=== PATIENT | male | born 1970 | race Caucasian/White ===

== ENCOUNTER 2024-08-09 14:01 | Emergency (ER) | payer OTHER, SELFPAY ==
[2024-08-09 14:10] VITALS: BP 139/92; PULSE 89; RESP 16; TEMP 36.6; O2SAT 99; BMI 20.7
[2024-08-09 14:15] VITALS: RESP 16; O2SAT 100
[2024-08-09] MEDS: IBUPROFEN 800 MG TABLET PO (14:22)
[2024-08-09 14:25] LABS: Coronavirus 19, PCR Not Detected (NotDetected); Influenza A, PCR Not Detected (NotDetected); Influenza B, PCR Not Detected (NotDetected)
--- NOTE | 2024-08-09 15:09 | PC.NURSE ---
Dr. Wyatt currently in speaking with the patient.
--- NOTE | 2024-08-09 15:11 | XR_ITS ---
PROCEDURE INFORMATION: Exam: XR Chest Exam date and time: 08/09/2024 3:32 PM Age: 53 years old Clinical indication: Cough and shortness of breath; Additional info: SOB cough TECHNIQUE: Imaging protocol: Radiologic exam of the chest. Views: 2 views. COMPARISON: No relevant prior studies available. FINDINGS: Lungs: Flattening of the hemidiaphragms compatible with hyperinflation. Lungs are otherwise clear. Pleural spaces: Unremarkable. No pleural effusion. No pneumothorax. Heart/Mediastinum: Unremarkable. No cardiomegaly. Bones/joints: Unremarkable. IMPRESSION: Hyperinflation suggesting possible emphysematous changes in the proper clinical setting. No acute disease.
[2024-08-09 15:12] VITALS: BP 133/88; PULSE 93; RESP 18; O2SAT 98
--- NOTE | 2024-08-09 15:12 | HMH.EDGENADL ---
Discharge Plan Disposition Patient Disposition: Home, Self-Care Prescriptions Prescriptions: New doxycycline hyclate 100 mg capsule 100 mg PO BID 7 Days Qty: 14 0RF prednisone 50 mg tablet 50 mg PO DAILY 3 Days Qty: 3 0RF Referrals Follow up/Referrals: Melba Gasca MD [Primary Care Provider] - See instructions Activity Restrictions/Add. Instructions Additional Instructions/Restrictions: At this time it was felt you are safe to be discharged home. If new or worsening symptoms please do not hesitate to return the emergency department. Please take your medications as prescribed. Use your inhaler 2 to 3 puffs every 3 hours as needed for wheezing and cough. If your symptoms persist longer than 7 days follow-up with your family doctor to make sure things are headed in the right direction Clinical Impressions Clinical Impression: Acute interstitial pneumonia Print Language Print Language: Greenlandic Discharge ED Provider: Ragini Marquez General Adult HPI General Chief complaint: Upper Respiratory Infection Stated complaint: body aches,congestion,fever Time Seen by Provider: 08/09/24 14:36 Mode of Arrival: Ambulatory Source of Information: Patient Limitations: No Limitations Description of Symptoms (Recalled from ER Triage Doc. by RN): Patient presents ambulatory to triage. Endorses congestion, body aches, and fevers. States he has been exposed to Flu A. Denies N/V. Denies diarrhea. Denies any urinary symptoms. States he took Robitussin yesterday and this morning. States he had a subjective fever yesterday, but couldn't check it because his dog chewed his thermometer. No distress noted in triage. History of Present Illness HPI narrative: Patient is a 53-year-old male with no chronic comorbidities, multiple decades smoker who presents emergency department for evaluation of cough, upper respiratory symptoms, body aches. Onset was acute, over the last 48 hours, no chest pain reported. No other acute complaints this time. Related Data Previous Rx's ?Medication ?Instructions ?Recorded doxycycline hyclate 100 mg capsule 100 mg PO BID pneumonia 7 days #14 08/09/24 caps prednisone 50 mg tablet 50 mg PO DAILY 3 days #3 tabs 08/09/24 Allergies Allergy/AdvReac Type Severity Reaction Status Date / Time Penicillins Allergy Anaphylaxis Verified 08/09/24 14:17 [facility] Disclaimer: The information contained in this section may have been updated after the patient was seen, as this information can be updated by other users. Social History Smoking Status: Current every day smoker alcohol intake: current current occupational status: other Travel in the last 8 weeks: None ROS Obtained: Yes Systems reviewed as appropriate & no additional complaints except as documented Physical Exam General General appearance: alert and in no apparent distress Head Head exam: atraumatic and normocephalic Eye Eye exam: Present PERRL ENT ENT exam: Present mucous membranes moist Neck Neck exam: Present normal inspection Chest Chest inspection: Present normal inspection and symmetric chest wall rise Respiratory Respiratory exam: Present wheezes (Expiratory phase all lung marin); Absent normal lung sounds bilaterally, respiratory distress or stridor Cardiovascular Cardiovascular exam: Present regular rate and normal rhythm Abdominal Exam Abdominal exam: Present soft; Absent tenderness Extremities Exam Extremities exam: Present normal inspection Neurological Exam Neurological exam: Present alert Psychiatric Psychiatric exam: Present normal affect Skin Skin exam: Present warm and dry Medical Decision Making Medical Records Screening: Per USPSTF and CDC recommendations, given the prevalence of disease in our region, it is our hospital?s policy to screen for HIV and viral Hepatitis for all patients aged 18 and over and those with ongoing risk factors. Lucas Inquiry Pt receiving controlled substance: No Vital Signs: 08/09/24 14:10 08/09/24 14:15 08/09/24 15:12 Temperature 97.8 F Temperature Source Oral Pulse Rate 93 H Pulse Rate [Radial] 89 Respiratory Rate 16 16 18 Blood Pressure 133/88 Blood Pressure [R Arm] 139/92 H Blood Pressure Mean [R Arm] 107 Blood Pressure Source [R Arm] Automatic Cuff 02 Sat by Pulse Oximetry 99 100 98 Oxygen Delivery Method Room Air Room Air Room Air Lab Data Lab Results 08/09/24 14:18: SARS-CoV-2 (PCR) Not detected, Influenza A Untype (PCR) Not detected, Influenza Type B (PCR) Not detected Orders (Tests/Meds): ED MEDICATIONS Generic Name Dose Route Start Last Admin Trade Name Freq PRN Reason Stop Dose Admin Albuterol Sulfate 2 puff 08/09/24 16:15 Albuterol-Hfa 90mcg/Puff Inhaler 8gm IH 09/08/24 16:14 Q4HP PRN Shortness Of Breath Discontinued Medications Generic Name Dose Route Start Last Admin Trade Name Freq PRN Reason Stop Dose Admin Albuterol/Ipratropium 9 ml 08/09/24 15:10 02/16/25 15:14 Ipratropium/Albuterol 3 Ml Neb IH 08/09/24 15:11 9 ml ONCE ONE Administration Doxycycline Hyclate 100 mg 08/09/24 15:54 08/09/24 16:02 Doxycycline Hycl 100 Mg Tablet PO 08/09/24 15:55 100 mg ONCE ONE Administration Ibuprofen 800 mg 08/09/24 14:17 08/09/24 14:22 Ibuprofen 800 Mg Tablet PO 08/09/24 14:18 800 mg ONCE ONE Administration Miscellaneous 1 unit 08/09/24 16:15 Aerochamber/Optihaler MC 08/09/24 16:16 ONCE ONE Prednisone 40 mg 08/09/24 15:10 08/09/24 15:14 Prednisone 20mg Tab PO 08/09/24 15:11 40 mg ONCE ONE Administration ORDERS Category Date Time Status CXR 2 view (NOT portable) [XR chest 2V] Stat Exams 08/09/24 15:11 Completed Rapid PCR Covid and Flu A/B Stat Lab 08/09/24 14:18 Completed Medical Decision Narrative: In summary patient is a 53-year-old male past medical history described above who presents emergency department for evaluation of shortness of breath and upper respiratory symptoms. Patient is hemodynamically stable nontoxic-appearing upon arrival, afebrile. Patient is x-ray phase wheezing in all lung marin and has a history of multi pack-year smoking. Differential includes pneumonia, viral bronchitis, among others. Workup will be conducted with two-view chest x-ray, viral swab. Initial inventions include DuoNebs and oral steroids given the same bioavailability as systemic steroids and no difference in outcomes. Hematologic labs was considered but given how well-appearing this will be deferred at this time. Chest pain reported so ischemic workup not warranted. Chest x-ray informally interpreted by me, interstitial pneumonia. Upon repeat evaluation patient had total resolution of wheezing. Given this metered-dose inhaler was provided by respiratory at bedside and patient we discharged with a course of doxycycline, steroids and was given return precautions. Critical Care Critical Care Time Critical Care Time: No
[2024-08-09] MEDS: predniSONE 20MG TAB 40 MG PO (15:14)
[2024-08-09] MEDS: IPRATROPIUM/ALBUTEROL 3 ML NEB 9 ML IH (15:14)
--- NOTE | 2024-08-09 15:42 | PC.NURSE ---
pt gone to xray
[2024-08-09] MEDS: DOXYCYCLINE HYCL 100 MG TABLET PO (16:02)
--- NOTE | 2024-08-09 16:16 | PC.NURSE ---
called respiratory per for albuterol inhaler and show pt how to use, respiratory states it will be awhile
[2024-08-09 16:32] VITALS: BP 129/85; PULSE 87; RESP 18; TEMP 36.6; O2SAT 98
== END 2024-08-09 16:34 | disposition home or self-care (01) ==
PROVIDERS: Emergency Provider Student in an Organized Health Care Education/Training Program; PCP Family Medicine
DX: J84.9 Interstitial pulmonary disease, unspecified (principal); R50.9 Fever, unspecified; R09.81 Nasal congestion; M79.10 Myalgia, unspecified site; R06.02 Shortness of breath; Z20.828 Contact with and (suspected) exposure to other viral communicable diseases; Z72.0 Tobacco use
CPT/HCPCS: 71046; 87636; 99284; J7620